=== PATIENT | female | born 1960 | race Caucasian/White ===

== ENCOUNTER → 2017-01-03 | Outpatient (CLI) | payer OTHER ==
[2017-01-03 15:33] LABS: HEMATOCRIT 42.1 % (37.0-47.0); HEMOGLOBIN 13.5 g/dL (12.0-16.0); MEAN CORPUSCULAR HEMOGLOBIN 29.2 PG (27-31); MEAN CORPUSCULAR HGB CONC 32.1 g/dL (33-37); MEAN CORPUSCULAR VOLUME 91.1 FL (81-99); RED BLOOD COUNT 4.62 10^6/uL (4.20-5.40)
[2017-01-03 16:00] LABS: BLOOD UREA NITROGEN 18 mg/dL (7-22); CALCIUM 9.1 mg/dL (8.7-10.7); CHOL/HDL RATIO 4.07 RATIO (0-4.0); EST GLOMERULAR FILTRATION > 60 (>60 ml/min/1.73m(2)); HDL CHOLESTEROL 54 mg/dL (40-150); SERUM CHOLESTEROL 220 mg/dL (120-200)
[2017-01-03 16:14] LABS: FREE T4 (FREE THYROXINE) 1.51 ng/dL (0.93-1.71)
== END ==
LOC: MOB LAB 10:40
PROVIDERS: ATTEND Nurse Practitioner Family
DX: Z00.01 Encounter for general adult medical examination with abnormal findings (principal); E78.5 Hyperlipidemia, unspecified; E03.9 Hypothyroidism, unspecified; R63.5 Abnormal weight gain; N18.2 Chronic kidney disease, stage 2 (mild)
CPT/HCPCS: 36415; 80053; 80061; 82728; 83540; 83550; 84439; 84443; 85027